=== PATIENT | male | born 1950 | race Caucasian/White ===

== ENCOUNTER 2016-06-12 18:55 | Emergency (ER) ==
[2016-06-12 19:00] VITALS: BP 155/75; TEMP 97.7; BMI 28.5
[2016-06-12] MEDS ORDERED: ASPIRIN CHEWABLE PO STA (19:19)
[2016-06-12] MEDS ORDERED: GI COCKTAIL PO STA (19:37)
[2016-06-12] MEDS ORDERED: CARAFATE PO STA (19:37)
[2016-06-12 19:57] LABS: BASOPHILS % (AUTO) 0.6 % (0.0-3.0); EOSINOPHILS # (AUTO) 0.2 K/ul (0.0-0.7); EOSINOPHILS % (AUTO) 3.4 % (0.0-7.0); HEMATOCRIT 35.6 % (42.0-52.0); HEMOGLOBIN 12.1 g/dl (14.0-18.0); IMMATURE GRANULOCYTE % (AUTO) 0.3 % (0.0-5.0); LYMPHOCYTES # (AUTO) 1.3 K/uL (0.60-3.4); LYMPHOCYTES % (AUTO) 18.6 (10.0-50.0); MEAN CORPUSCULAR HEMOGLOBIN 30.9 pg (27.0-31.0); MEAN CORPUSCULAR VOLUME 90.8 fl (80.0-94.0); MONOCYTES # (AUTO) 0.6 K/uL (0.4-2.0); MONOCYTES % (AUTO) 8.8 (0-10); NEUTROPHILS # (AUTO) 4.6 K/ul (2.0-6.9); NEUTROPHILS % (AUTO) 68.3; PLATELET COUNT 225 10^3/uL (140-440); RED BLOOD COUNT 3.92 10^6/ul (4.70-6.10); WHITE BLOOD COUNT 6.78 K/ul (4.2-10.2)
[2016-06-12 20:21] LABS: ALANINE AMINOTRANSFERASE 13 U/L (12-78); ALBUMIN 3.9 g/dL (3.4-5.0); ALBUMIN/GLOBULIN RATIO 1.34; ALKALINE PHOSPHATASE 53 U/L (56-119); AMYLASE 61 U/L (25-115); ASPARTATE AMINO TRANSFERASE 18 U/L (15-37); BLOOD UREA NITROGEN 21 mg/dL (7-18); BUN/CREATININE RATIO 19.62; CALCIUM 9.3 mg/dL (8.2-10.2); CARBON DIOXIDE 28 mmol/L (23-31); CHLORIDE 103 mmol/L (98-107); CREATINE KINASE 53 U/L; CREATININE 1.07 mg/dL (0.60-1.10); GLUCOSE 97 mg/dL (82-115); LIPASE 29 U/L (8-78); SODIUM 140 mmol/L (136-145); TOTAL PROTEIN 6.8 g/dL (5.8-8.1)
--- NOTE | 2016-06-12 20:25 | CT ---
EXAM: Noncontrast CT of the abdomen and pelvis HISTORY: Epigastric pain COMPARISON: 12/28/2013 TECHNIQUE: Noncontrast CT of the abdomen and pelvis FINDINGS: Noncontrast technique limits evaluation of the abdominal viscera. A small portion of the right hepa tic dome was not imaged. The visualized portions of the unenhanced liver are unremarkable other prasad n a punctate calcified granuloma. Splenic calcified granulomas are present. The unenhanced gallbla dder, adrenals and pancreas are unremarkable. A right renal superior pole cyst is seen measuring 5. 0 cm, previously measuring 4.3 cm. A left renal cyst is seen measuring 2.6 cm, previously measuring 2.2 cm. There is an adjacent smaller cyst measuring 1.5 cm. No renal, ureteral or bladder calculi are identified. No abnormal small bowel dilation is seen. There is a partially imaged left inguinal hernia containi ng a portion of the descending colon and sigmoid colon. This hernia measures up to at least 6.7 cm A P by 8.1 cm transverse. Previously this measured 6.2 cm AP by 7.2 cm transverse. There is no more p roximal colon dilation to suggest obstruction. There is mild to moderate transverse colon stool. T he appendix is not abnormally enlarged. There is a small fat-containing umbilical hernia. There is calcified atherosclerotic plaque of the aorta as branches. Prostate calcifications are seen. No f ree air or free fluid is seen. There is moderate multilevel lumbar degenerative disc disease. IMPRESSION: Partially imaged large left inguinal hernia containing a portion of the descending and sigmoid colon . No evidence of obstruction. Moderate transverse colonic stool. Bilateral renal cysts. Atherosclerosis. Other chronic and incidental findings as described above.
--- NOTE | 2016-06-12 20:41 | ED.PDOC ---
General ED Provider: Dr. KIRAN HERNANDEZ Chief Complaint: Chest Pain Stated Complaint: Has been having belchings, and started hurting in the epigatric area, vomited once and felt better, came for the evaluation. no pain now. friend is in the room with patient Time Seen by Physician: 20:39 Mode of Arrival: Walk-In Information Source: Patient Primary Care Provider: RANULFO MCKENZIE Nursing and Triage Documentation Reviewed and Agree: Yes GI Complaint Exam - Abdominal Pain Complaint/Exam Onset: Gradual Symptoms Are: Resolved Initial Severity: Moderate Current Severity: None Location of Pain: Epigastric Character: Reports: Burning Aggravating: Reports: Food, Eating Alleviating: Reports: None Associated Signs and Symptoms: Reports: Nausea, Vomiting. Denies: Diaphoresis, Fever, Cough, Chest pain, Dizziness, Back pain, Constipation, Blood in stool, Dysuria, Urinary frequency, Decreased urine output, Decreased appetite, Discharge, Diarrhea, Decreased activity Related History: Reports: Similar episode AAA Risk Factors: Reports: None Cardiac Risk Factors: Reports: DM, Hypertension, Elevated lipids Testicular Torsion Risk Factors: Reports: None Surgical Obstruction Risk Factors: Reports: None Related Surgical History: Reports: None Abdominal Findings: Absent: Pulsatile mass, Abdominal distention, Unequal femoral pulses, Rebound tenderness, Peritoneal signs, McBurney's Point tender Differential Diagnoses: ACS, GB, PUD Review of Systems - Review Of Systems Constitutional: Reports: No symptoms Eyes: Reports: No symptoms Ears, Nose, Mouth, Throat: Reports: No symptoms Respiratory: Reports: No symptoms Cardiac: Reports: No symptoms GI: Reports: Abdominal pain : Reports: No symptoms Musculoskeletal: Reports: No symptoms Skin: Reports: No symptoms Neurological: Reports: No symptoms Endocrine: Reports: No symptoms Hematologic/Lymphatic: Reports: No symptoms All Other Systems: Reviewed and Negative Past Medical History - Past Medical History Previously Healthy: No Endocrine: Reports: DM 2, Dyslipidemia Cardiovascular: Reports: Hypertension Respiratory: Reports: Other Hematological: Reports: None Gastrointestinal: Reports: None, GERD (old record) Genitourinary: Reports: None Neuro/Psych: Reports: Anxiety Musculoskeletal: Reports: None Cancer: Reports: None Other Pertinent Past Medical History: htn dm chol anx - Surgical History General Surgical History: Reports: None, Other (patietn states hernia ismuch smaller- not operated on-no symptoms). Denies: Cholecystectomy (note old record statescholecystectomy- patietndenies) - Family History Family History: Reports: Unknown - Social History Smoking Status: Never smoker Hx Substance Use: No Alcohol Screening: None Physical Exam - Physical Exam Appearance: Well-appearing, No pain distress, Well-nourished Eyes: ONIEL, EOMI, Conjunctiva clear ENT: Ears normal, Nose normal, Oropharynx normal Respiratory: Airway patent, Breath sounds clear, Breath sounds equal, Respirations nonlabored Cardiovascular: RRR, Pulses normal, No rub, No murmur GI/: Soft, Nontender (LEFT i hernia non tender), No masses, Bowel sounds normal, No Organomegaly Musculoskeletal: Normal strength, ROM intact, No edema, No calf tenderness Skin: Warm, Dry, Normal color Neurological: Sensation intact, Motor intact, Reflexes intact, Cranial nerves intact, Alert, Oriented Psychiatric: Affect appropriate, Mood appropriate Interpretation - Radiology Interpretation Radiology Interpretation By: Radiologist Radiology Results: Positive (left i hernia) Critical Care Note - Critical Care Note Total Time (mins): 0 Course - Course Hematology/Chemistry: 06/12/16 19:56 06/12/16 19:56 Orders, Labs, Meds: Lab Review 06/12/16 19:56 WBC 6.78 RBC 3.92 L Hgb 12.1 L Hct 35.6 L MCV 90.8 MCH 30.9 MCHC 34.0 RDW Coeff of Any 13.2 Plt Count 225 Immature Gran % (Auto) 0.3 Neut % (Auto) 68.3 Lymph % (Auto) 18.6 Harney % (Auto) 8.8 Eos % (Auto) 3.4 Baso % (Auto) 0.6 Immature Gran # (Auto) 0.0 Neut # 4.6 Lymph # 1.3 Harney # 0.6 Eos # 0.2 Baso # 0.0 D-Dimer 0.67 Sodium 140 Potassium 4.0 Chloride 103 Carbon Dioxide 28 Anion Gap 13.0 BUN 21 H Creatinine 1.07 Estimated GFR (MDRD) 69.00 BUN/Creatinine Ratio 19.62 Glucose 97 Calcium 9.3 Total Bilirubin 0.30 AST 18 ALT 13 Alkaline Phosphatase 53 L Total Creatine Kinase 53 Troponin I < 0.0100 B-Natriuretic Peptide 25 Total Protein 6.8 Albumin 3.9 Globulin 2.9 Albumin/Globulin Ratio 1.34 Amylase 61 Lipase 29 Orders Category Date Time Status EKG-(ED ONLY) Stat CARDIO 06/12/16 20:11 Completed AMYLASE Stat LAB 06/12/16 19:56 Completed BNP [B-TYPE NATRIURETIC PEPTIDE] Stat LAB 06/12/16 19:56 Completed CBC W/ AUTO DIFF Stat LAB 06/12/16 19:56 Completed COMPREHENSIVE METABOLIC PANEL Stat LAB 06/12/16 19:56 Completed CREATINE KINASE Stat LAB 06/12/16 19:56 Completed D-DIMER Stat LAB 06/12/16 19:56 Completed LIPASE Stat LAB 06/12/16 19:56 Completed TROPONIN I Stat LAB 06/12/16 19:56 Completed Aspirin [Aspirin Chewable] MEDS 06/12/16 19:19 Discontinued 324 mg PO ONCE STA Mag-Al Plus//Lidocaine [Gi Cocktail] MEDS 06/12/16 19:37 Discontinued 30 ml PO ONCE STA Sucralfate Susp [Carafate] MEDS 06/12/16 19:37 Discontinued 1 gm PO ONCE STA CHEST, 2 VIEWS PA & LAT Stat RADS 06/12/16 19:[address] ABDOMEN/PELVIS WO CONTRAST Stat RADS 06/12/16 19:37 Completed Medications Discontinued Medications Generic Name Dose Route Start Last Admin Trade Name Freq PRN Reason Stop Dose Admin Al Hydroxide/Mg Hydroxide 30 ml 06/12/16 19:37 06/12/16 19:50 Gi Cocktail PO 06/12/16 19:38 30 ml ONCE STA Administration Aspirin 324 mg 06/12/16 19:19 06/12/16 19:28 Aspirin Chewable PO 06/12/16 19:20 324 mg ONCE STA Administration Sucralfate 1 gm 06/12/16 19:37 06/12/16 19:50 Carafate PO 06/12/16 19:38 1 gm ONCE STA Administration Vital Signs: Temp Pulse Resp BP Pulse Ox 06/12/16 18:55 97.7 F 78 16 155/75 H 95 Departure - Departure Time of Disposition: 20:49 Disposition: HOME SELF-CARE Discharge Problem: GERD (gastroesophageal reflux disease) Qualifiers: Esophagitis presence: without esophagitis Qualifier Code: (K21.9) Gastro- esophageal reflux disease without esophagitis Instructions: Diet for Stomach Ulcers and Gastritis (ED), Gastroesophageal Reflux Disease (ED) Condition: Stable Pt referred to PMD for follow-up: Yes Additional Instructions: SPICY FOOD NO FRIED FOOD Prescriptions: Pantoprazole Sodium [Protonix] 40 mg PO BIDAC #60 tablet. Sucralfate Susp [Carafate] 1 gm PO ACHS #1 bottle Allergies/Adverse Reactions: Allergies codeine Adverse Reaction (Verified 06/12/16 19:00) Penicillins Adverse Reaction (Verified 06/12/16 19:00) sulfamethoxazole [From Bactrim] Adverse Reaction (Verified 06/12/16 19:00) trimethoprim [From Bactrim] Adverse Reaction (Verified 06/12/16 19:00) Home Medications: Ambulatory Orders Glipizide [Glipizide Xl] 10 mg PO DAILY 03/06/13 Lisinopril 20 mg PO DAILY 03/06/13 Lovastatin 40 mg PO DAILY 03/06/13 Meclizine HCl [Antivert] 25 mg PO DAILY 03/06/13 Metformin HCl 1,000 mg PO BID 03/06/13 Triamterene/Hydrochlorothiazid [Maxzide 37.5 mg-25 mg Tablet] 1 cap PO DAILY Pantoprazole Sodium [Protonix] 40 mg PO BIDAC #60 tablet. 06/12/16 Sucralfate Susp [Carafate] 1 gm PO ACHS #1 bottle 06/12/16 Disposition Discussed With: Patient, Family
--- NOTE | 2016-06-12 20:55 | DI ---
EXAM: Two views of the chest. History: Chest pain. Comparison: Chest radiograph 06/03/2013 Findings: Heart size is normal. No focal consolidation. No appreciable pleural fluid and no pneum othorax. No acute osseous abnormalities. Degenerative changes of the thoracic spine again noted. Impression: No acute cardiopulmonary process.
== END 2016-06-12 21:01 | disposition home or self-care (01) ==
LOC: ED 18:55
DX: K21.9 Gastro-esophageal reflux disease without esophagitis (principal); E11.9 Type 2 diabetes mellitus without complications; I10 Essential (primary) hypertension; E78.5 Hyperlipidemia, unspecified; Z79.899 Other long term (current) drug therapy
CPT/HCPCS: 36415; 80053; 82150; 82550; 83690; 83880; 84484; 85025; 85379; 93005; 93010; 99283

== ENCOUNTER 2016-06-21 06:46 | Outpatient (CLI) ==
--- NOTE | 2016-06-24 09:20 | ECHO2D ---
Date of Exam: 06/21/16 Ordering Physician: KIRAN HERNANDEZ Reason for Echo: CHEST PAIN, HTN M-Mode Normal Adult Results LV Dimensions Normal Adult Results AoV Opening excursions >1.6 >1.6 LVEDD-base- 3.5-5.8 4.5 Ao root dimensions 2.0-3.7 3.8 LVESD-base- 3.1-4.6 L. Atrium dimensions 1.9-3.8 3.1 Post. Wall thickness 0.8-1.1 1.2 IV septum (thickness) 0.7-1.2 1.2 Post. Wall excursion 0.72-1.3 NORMAL Septal motion NORMAL Systolic motion R. Ventricular cavity 1.5-2.0 NORMAL LVEF 60% 63% Paradoxical septal wall motion NORMAL 2-D : 2-D M Mode Echocardiogram was performed using apical four chamber and left parasternal long and short axis views. Mitral, tricuspid and aortic valves appear to be normal. Contractility of the left ventricle seems to be normal, so is the cavity size. Left atrial cavity size and aortic root appear to be normal. There is no pericardial effusion. There is no thrombus noted in the left ventricular or left aortic cavity. No mitral valve prolapse noted. M-MODE: MV: NORMAL AV: NORMAL TV: NORMAL PV: CHAMBER SIZE: NORMAL WALL MOTION: NORMAL PERICARDIUM: NORMAL INTERPRETATION: 1. LEFT VENTRICULAR HYPERTROPHY 2. NORMAL VALVES 3. NORMAL LEFT VENTRICULAR CONTRACTILITY MTDD
== END 2016-06-21 06:47 | disposition home or self-care (01) ==
LOC: CAR 06:46
PROVIDERS: ATTEND Emergency Medicine
DX: R07.9 Chest pain, unspecified (principal); I10 Essential (primary) hypertension; E11.9 Type 2 diabetes mellitus without complications

== ENCOUNTER 2016-06-23 06:45 | Outpatient (CLI) ==
--- NOTE | 2016-06-24 09:07 | ECHOSTRESS ---
Date of Exam: 06/23/16 Ordering Physician: [facility]--KIRAN HERNANDEZ Reason for Echo: CHEST PAIN, HTN/STRESS TEST--NO ISCHEMIA M-Mode Normal Adult Results LV Dimensions Normal Adult Results AoV Opening excursions >1.6 LVEDD-base- 3.5-5.8 Ao root dimensions 2.0-3.7 LVESD-base- 3.1-4.6 L. Atrium dimensions 1.9-3.8 Post. Wall thickness 0.8-1.1 IV septum (thickness) 0.7-1.2 Post. Wall excursion 0.72-1.3 Septal motion Systolic motion R. Ventricular cavity 1.5-2.0 LVEF 60% Paradoxical septal wall motion 2-D: NORMAL LEFT VENTRICULAR CONTRACTILITY--RESTING AND POST EXERCISE M-MODE: MV: AV: TV: PV: CHAMBER SIZE: WALL MOTION: NORMAL LEFT VENTRICULAR CONTRACTILITY--RESTING AND POST EXERCISE PERICARDIUM: INTERPRETATION: 1. NORMAL LEFT VENTRICULAR CONTRACTILITY--RESTING AND POST EXERCISE MTDD
--- NOTE | 2016-06-24 09:16 | STRESSMOD ---
Ordering Physician: KIRAN HERNANDEZ Date of Test: 06/23/16 Medical History: CHEST PAIN, HYPERTENSION Current Medications: LISINOPRIL, GLIPIZIDE, LOVASTATIN, METFORMIN, HCTZ, MECLIZINE Physical Findings: S1, S2, NO S3 Resting EKG: SINUS RHYTHM/NO ACUTE CHANGES Target Heart Rate: 130/153 STAGE MPH/GRADE HEART RATE BPM BLOOD PRESSURE mmhg RHYTHM S-T SEGMENT UP DOWN SYMPTOMS,COMMENTS At Rest 63 130/74 SR X NONE 1 1.7/0% 122 146/70 SR X NONE 2 1.7/5% 130 142/66 SR X NONE 3 1.7/10% 4 2.5/12% 5 3.4/14% 6 4.2/16% 7 5.18% Immediately after 129 SR X SHORT OF BREATH Total Time: 7:13 Maximum Heart Rate Reached: 129 Reason for Termination: SHORT OF BREATH 3 MIN POST EXERCISE: HR 84/BPM ____ INTERPRETATION: 98% OXYGEN SATURATION ON ROOM AIR WITH EXERCISE METS 4.6 1. NO EVIDENCE OF ISCHEMIA BY ST-T WAVE 2. NO CHEST PAIN OR CHEST DISCOMFORT 3. BLOOD PRESSURE RESPONSE: NORMAL 4. NO ARRHYTHMIAS NORMAL LEFT VENTRICULAR CONTRACTILITY RESTING AND POST EXERCISE MTDD
== END 2016-06-23 06:46 | disposition home or self-care (01) ==
LOC: CAR 06:45
PROVIDERS: ATTEND Emergency Medicine
DX: R07.9 Chest pain, unspecified (principal); I10 Essential (primary) hypertension; E11.9 Type 2 diabetes mellitus without complications